=== PATIENT | female | born 2000 | race Hispanic/Latino ===

== ENCOUNTER 2022-11-16 02:04 | Outpatient (CLI) ==
[~2022-11-16] VITALS: Ht 149.9 cm; Wt 59.1 kg
[2022-11-16 04:12] VITALS: BP 120/75
== END 2022-11-16 05:10 | disposition home or self-care (01) ==
LOC: M LDO 02:04
PROVIDERS: ATTEND Obstetrics & Gynecology
DX: O47.1 False labor at or after 37 completed weeks of gestation (principal); O48.0 Post-term pregnancy; Z3A.41 41 weeks gestation of pregnancy
CPT/HCPCS: 59025; G0463

== ENCOUNTER 2022-11-16 20:26 | Inpatient (IN) | payer OTHER ==
[~2022-11-16] VITALS: Ht 149.9 cm; Wt 58.8 kg
[2022-11-16 20:42] VITALS: BP 129/87
[2022-11-16] MEDS ORDERED: HOME MED LIST COMPLETE! XX SCH (20:45)
[2022-11-16] MEDS ORDERED: LACTATED RINGER'S 1000 ML IV STA (21:19)
[2022-11-16] MEDS ORDERED: TRANEXAMIC ACID INJection 1,000 MG in NS 100 ML IV PRN (21:20)
[2022-11-16] MEDS ORDERED: OXYTOCIN DRIP 30 UNITS in IV 1 EA IV PRN ×4 (21:20)
[2022-11-16] MEDS ORDERED: CARBOPROST TROMETHAMINE 250 MCG/ML AMP IM PRN (21:20)
[2022-11-16] MEDS ORDERED: LIDOCAINE 1% MDV 20ML VIAL INFIL PRN (21:20)
[2022-11-16] MEDS ORDERED: METHYLERGONOVINE MALEATE 0.2MG/ML 1ML VIAL IM PRN (21:20)
[2022-11-16 21:45] LABS: HEMATOCRIT 28.7 % (36.0-47.0); MEAN CORPUSCULAR HEMOGLOBIN 25.1 pg (27.0-33.0); MEAN CORPUSCULAR HGB CONC 31.4 g/dl (32.0-36.5); MEAN CORPUSCULAR VOLUME 80.2 fl (80.0-96.0); PLATELET COUNT, AUTOMATED 332 10^3/uL (150-450); RED BLOOD COUNT 3.58 10^6/uL (4.00-5.40); WHITE BLOOD COUNT 7.2 10^3/uL (4.0-10.0)
[2022-11-16 21:47] VITALS: BP 104/61
[2022-11-16] MEDS ORDERED: ONDANSETRON 4MG 2ML VIAL IV PRN (22:35)
[2022-11-16] MEDS ORDERED: OXYTOCIN DRIP 30 UNITS in IV 1 EA IV SCH (22:40)
[2022-11-16] MEDS ORDERED: BUTORPHANOL 2 MG/ML 1ML VIAL IV ONE (23:00)
[2022-11-16] MEDS ORDERED: PROMETHAZINE 25MG/ML 1ML VIAL IV ONE (23:00)
[2022-11-17] VITALS (59 sets, daily range): BP systolic 80–131; BP diastolic 50–86
[2022-11-17] MEDS: LR 1,000 ML IV SCH ×4 (05:34→18:21)
[2022-11-17] MEDS ORDERED: NALOXONE INJ 0.4MG/1ML VIAL IV PRN (08:10)
[2022-11-17] MEDS ORDERED: ePHEDrine SULFATE 25 MG/5 ML(5MG/ML) SYRINGE IVP PRN (08:10)
[2022-11-17] MEDS ORDERED: EPIDURAL/PCA KEYS XX PRN (08:10)
[2022-11-17] MEDS ORDERED: LR 500 ML IV PRN (08:10)
[2022-11-17] MEDS ORDERED: diphenhydrAMINE 50MG/ML VIAL IV PRN (08:10)
[2022-11-17] MEDS: FENTANYL/ROPIVACAINE/NACL BAG 100 ML EPIDURAL SCH ×2 (08:19→16:19)
[2022-11-17] MEDS: ONDANSETRON 4MG 2ML VIAL IV PRN ×2 (13:48→22:37)
[2022-11-17] MEDS ORDERED: HOME MED LIST COMPLETE! XX SCH (15:10)
[2022-11-17] MEDS ORDERED: diphenhydrAMINE 50MG/ML VIAL IV ONE (20:00)
[2022-11-17 21:43] LABS: CORD GAS ABE A -5.3; CORD GAS ABE V -6.9; CORD GAS HCO3 V 19.4 MEQ/L; CORD GAS O2 SAT A 41.8 %; CORD GAS O2 SAT V 63.9 %; CORD GAS PCO2 A 61.9 mmHg; CORD GAS PCO2 V 41.7 mmHg; CORD GAS PH A 7.206 UNITS; CORD GAS PH V 7.286 UNITS; CORD GAS PO2 A 19.9 mmHg; CORD GAS PO2 V 26.8 mmHg; CORD GAS SBC A 18.8 MEQ/L; CORD GAS SBC V 18.2 MEQ/L; CORD GAS TCO2 A 25.9 MEQ/L; CORD GAS TCO2 V 20.7 MEQ/L
[2022-11-17] MEDS ORDERED: ACETAMINOPHEN 500 MG TAB PO PRN (22:50)
[2022-11-17] MEDS ORDERED: DIBUCAINE 1% OINTMENT 30GM TOP PRN (22:50)
[2022-11-17] MEDS ORDERED: METHYLERGONOVINE MALEATE 0.2 MG TAB PO PRN (22:50)
[2022-11-17] MEDS ORDERED: ACETAMINOPHEN TAB 650MG DOSE (2X325MG) PO PRN (22:50)
[2022-11-17] MEDS ORDERED: IBUPROFEN 600MG TAB PO PRN (22:50)
[2022-11-17] MEDS ORDERED: OXYTOCIN DRIP 30 UNITS in IV 1 EA IV SCH ×4 (22:50)
[2022-11-17] MEDS ORDERED: MOM 30ML SUSPENSION UDC PO PRN (22:50)
[2022-11-17] MEDS ORDERED: ONDANSETRON 4MG 2ML VIAL IV PRN (22:50)
[2022-11-17] MEDS ORDERED: RHOGAM 300MCG (1500IU) INJ IM SCH (22:50)
[2022-11-17] MEDS ORDERED: DOCUSATE SODIUM 100MG CAPSULE PO PRN (22:50)
[2022-11-17] MEDS ORDERED: IBUPROFEN 800 MG TAB PO PRN (22:50)
[2022-11-18 00:50] VITALS: BP 122/78
[2022-11-18] MEDS: FENTANYL/ROPIVACAINE/NACL BAG 100 ML EPIDURAL SCH (03:17)
[2022-11-18] MEDS: LR 1,000 ML IV SCH (03:18)
[2022-11-18 06:00] VITALS: BP 107/74
[2022-11-18] MEDS: PRENATAL VITAMINS CHEWABLE TABLET PO SCH (09:08)
[2022-11-18 18:00] VITALS: BP 104/61
[2022-11-19 05:33] VITALS: BP 105/65
[2022-11-19] MEDS: PRENATAL VITAMINS CHEWABLE TABLET PO SCH (08:04)
[2022-11-19] MEDS ORDERED: MEASLES,MUMPS,RUBELLA VACCINE INJ (MMR-II) SC.IMMUN ONE (09:00)
== END 2022-11-19 13:03 | disposition home or self-care (01) | DRG 807 ==
LOC: M LDO 20:26 → M LDI 21:19 → M OBS 11-18 00:50
PROVIDERS: ADMIT Advanced Practice Midwife; ATTEND Obstetrics & Gynecology
PROC: 10E0XZZ Delivery of Products of Conception, External Approach (ICD-10-PCS; principal; 2022-11-17)
PROC: 10907ZC Drainage of Amniotic Fluid, Therapeutic from Products of Conception, Via Natural or Artificial Opening (ICD-10-PCS; 2022-11-17)
PROC: 0HQ9XZZ Repair Perineum Skin, External Approach (ICD-10-PCS; 2022-11-17)
DX: O41.03X0 Oligohydramnios, third trimester, not applicable or unspecified (principal); Z37.0 Single live birth; Z3A.41 41 weeks gestation of pregnancy; O48.0 Post-term pregnancy; O99.02 Anemia complicating childbirth; D64.9 Anemia, unspecified; O77.0 Labor and delivery complicated by meconium in amniotic fluid; O70.0 First degree perineal laceration during delivery